=== PATIENT | female | born 1985 | race African-American/Black ===

== ENCOUNTER 2017-07-20 02:32 | Emergency (ER) | payer SELFPAY ==
[~2017-07-20] VITALS: Ht 154.9 cm; Wt 53.2 kg
[2017-07-20 02:39] VITALS: BP 125/64
--- NOTE | 2017-07-20 03:45 | NUR ---
PATIENT TO ER BED 11.
[2017-07-20 03:52] VITALS: BP 125/64
--- NOTE | 2017-07-20 03:55 | NUR ---
PATIENT PRESENTS TO ED WITH C/O SORETHROAT, RT EAR PAIN, FEVER, NASAL CONGESTION X 8 DAYS. PT DENIES N/V/D; SKIN IS PINK/WARM/DRY; AAOX4 WITH EVEN AND STEADY GAIT; LUNGS CLEAR BL; HR EVEN AND REGULAR; PT DENIES ANY CP OR SOB AT THIS TIME; PATIENT STATES PAIN OF 8/10 AT THIS TIME; VSS; PATIENT POSITIONED FOR COMFORT; HOB ELEVATED; BEDRAILS UP X2; BED DOWN. ER MD MADE AWARE OF PT STATUS.
[2017-07-20] MEDS ORDERED: KETOROLAC 60 MG/2 ML VIAL IM ONE (04:10)
[2017-07-20] MEDS ORDERED: PENICILLIN G BENZATHINE L-A 1.2 MU/2 ML SYR IM ONE (04:10)
--- NOTE | 2017-07-20 05:02 | NUR ---
Patient discharged with v/s stable. Written and verbal after care instructions given and explained. Patient alert, oriented and verbalized understanding of instructions. Ambulatory with steady gait. All questions addressed prior to discharge. ID band removed. Patient advised to follow up with PMD. Rx of PREDNISONE, MOTRIN AND CORTISPORIN OTIC SUSPENSION given. Patient educated on indication of medication including possible reaction and side effects. Opportunity to ask questions provided and answered.
== END 2017-07-20 05:02 | disposition home or self-care (01) ==
LOC: MED 02:32
DX: J02.0 Streptococcal pharyngitis (principal); H60.8X1 Other otitis externa, right ear; F17.210 Nicotine dependence, cigarettes, uncomplicated
CPT/HCPCS: 96372; 99284; J0561; J1885

== ENCOUNTER 2017-07-29 07:48 | Emergency (ER) | payer OTHER ==
[~2017-07-29] VITALS: Ht 160 cm; Wt 53.6 kg
[2017-07-29 07:56] VITALS: BP 118/71
--- NOTE | 2017-07-29 08:10 | NUR ---
31/F PRESENTS TO ED WITH LEFT EYELID PAIN SINCE SATURDAY. PT STATES SHE IS ON STEROIDS AND ABX FOR STREP THROAT. DENIES N/V/D; SKIN IS PINK/WARM/DRY; AAOX4 WITH EVEN AND STEADY GAIT; LUNGS CLEAR BL; HR EVEN AND REGULAR; PT DENIES ANY FEVER, CP, SOB, OR COUGH AT THIS TIME; PATIENT STATES PAIN OF 5/10 AT THIS TIME; VSS; PATIENT POSITIONED FOR COMFORT; HOB ELEVATED; BEDRAILS UP X2; BED DOWN. ER MD MADE AWARE OF PT STATUS.
--- NOTE | 2017-07-29 08:21 | NUR ---
PATIENT SEEN BY DR. GILLESPIE AT BEDSIDE.
[2017-07-29 08:30] VITALS: BP 111/69
--- NOTE | 2017-07-29 08:30 | NUR ---
Patient discharged with v/s stable. Written and verbal after care instructions given and explained. Patient alert, oriented and verbalized understanding of instructions. Ambulatory with steady gait. All questions addressed prior to discharge. ID band removed. Patient advised to follow up with PMD. Rx of KEFLEX 500MG, DIPHENHYDRAMINE 25MG, TOBRANMYCIN 0.3% given. Patient educated on indication of medication including possible reaction and side effects. Opportunity to ask questions provided and answered.
== END 2017-07-29 08:30 | disposition home or self-care (01) ==
LOC: MED 07:48
DX: H10.9 Unspecified conjunctivitis (principal); H05.222 Edema of left orbit
CPT/HCPCS: 99283